=== PATIENT | female | born 1975 | race African-American/Black ===

== ENCOUNTER 2016-08-11 03:42 | Emergency (ER) | payer SELFPAY ==
[~2016-08-11] VITALS: Ht 165.1 cm; Wt 95.3 kg
[~2016-08-11 03:42] MED LIST: IBUP200T77 PO
[2016-08-11 03:46] VITALS: BP 149/88
[2016-08-11] MEDS ORDERED: BUPIVACAINE 0.25% 50 ML VIAL. IJ ONE (04:00)
--- NOTE | 2016-08-11 04:24 | PHYS DOC ---
Past Medical History Past Medical History: Other Additional Past Medical Histor: carpal tunnel Past Surgical History: No Surgical History Alcohol Use: None Drug Use: Marijuana Adult General Chief Complaint Chief Complaint: DENTAL PROBLEM HPI HPI Patient is a 41 year old female who presents with dental pain since dental extraction 2 days ago (states she had extraction of upper and lower molar on left side). Notes pain worse in left upper gumline than left lower gumline and radiates into cheek. Makes it difficult for her to sleep. Has been taking tylenol and ibuprofen without complete relief. Has appointment with dentist for f/u on 08/12/16. Denies face swelling, difficulty breathing, difficulty opening mouth, voice changes, fever or chills, nausea or vomiting. She is currently taking antibiotics for this as well due to associated infection. Review of Systems Review of Systems Constitutional: Denies fever or chills [] Eyes: Denies change in visual acuity, redness, or eye pain [] HENT: Denies nasal congestion or sore throat [] Respiratory: Denies cough or shortness of breath [] Cardiovascular: No additional information not addressed in HPI [] GI: Denies abdominal pain, nausea, vomiting, bloody stools or diarrhea [] : Denies dysuria or hematuria [] Musculoskeletal: Denies back pain or joint pain [] Integument: Denies rash or skin lesions [] Neurologic: Denies headache, focal weakness or sensory changes [] Endocrine: Denies polyuria or polydipsia [] Current Medications Current Medications Current Medications Medications (Trade) Dose Ordered Sig/[facility] Start Time Stop Time Status Last Admin Dose Admin Bupivacaine HCl (Marcaine 0.25%) 10 ml 1X ONCE 08/11/16 04:00 08/11/16 04:01 Cancel Bupivacaine HCl (Sensorcaine-Mpf 0.25%) 10 ml 1X ONCE 08/11/16 05:00 08/11/16 05:01 DC 08/11/16 04:38 10 ML Allergies Allergies Allergies Coded Allergies Type Severity Reaction Last Updated Verified No Known Drug Allergies 04/08/13 No Physical Exam Physical Exam Constitutional: Well developed, well nourished, no acute distress, non-toxic appearance. [] HENT: Normocephalic, atraumatic, bilateral external ears normal, oropharynx moist, no oral exudates, nose normal. Has well appearing pink gumline to left upper posterior premolar with some tenderness and mild white discharge from gumline but no swelling or discoloration; Has dental caries of left molar and premolar with an old healed gumline from past molar extraction, but no new evidence of extraction to lower teeth; No stridor, change of voice, tongue swelling, trismus, or drooling; Uvula is midline and floor is nontender [] Eyes: PERRLA, EOMI. [] Neck: Normal range of motion, no tenderness, supple. [] Cardiovascular: Extremities warm and well-perfused [] Lungs & Thorax: Respirations even and unlabored [] Abdomen: soft, no tenderness. [] Skin: Warm, dry, no erythema, no rash. [] Back: Normal range of motion. [] Extremities: ROM intact, ambulatory with a steady gait. [] Neurologic: Alert and oriented X 3, normal motor function, normal sensory function, no focal deficits noted. [] Psychologic: Affect normal, judgement normal, mood normal. [] Current Patient Data Vital Signs Vital Signs Date Time Temp Pulse Resp B/P Pulse Ox O2 Delivery O2 Flow Rate FiO2 08/11/16 03:46 98.5 80 18 99 Room Air 98.5 Course & Med Decision Making Course & Med Decision Making Dental block performed. She tolerated procedure well with no complications. Had improvement of symptoms. Return precautions given. She understands and agrees plan. Dragon Disclaimer Dragon Disclaimer This electronic medical record was generated, in whole or in part, using a voice recognition dictation system. PROCEDURE Procedure Left upper premolar dental block performed directly superior to the area of dental extraction with adequate analgesia, bupivacaine, 3 mL, tolerated procedure well, no complications Departure Departure Impression: Primary Impression: Pain, dental Disposition: 01 HOME, SELF-CARE Condition: STABLE Referrals: UNKNOWN PCP NAME (PCP) Patient Instructions: Dental Pain, [id number] Additional Instructions: Take Tylenol or ibuprofen as needed for pain. Follow-up with your dentist. Return for any concerns. Twan LECHUGA MD Aug 11, 2016 04:24
[2016-08-11] MEDS ORDERED: BUPIVACAINE MPF 0.25% 10 ML VIAL. IJ ONE (05:00)
== END 2016-08-11 05:00 | disposition home or self-care (01) ==
LOC: ER 03:42
DX: K08.89 Other specified disorders of teeth and supporting structures (principal); F12.10 Cannabis abuse, uncomplicated
CPT/HCPCS: 64400; 99284; J3490

== ENCOUNTER 2020-01-06 18:19 | Emergency (ER) | payer SELFPAY ==
[~2020-01-06] VITALS: Ht 165.1 cm; Wt 79.5 kg
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
[2020-01-06] MEDS ORDERED: HYDROcodone/APAP 5/325MG 1 TAB TABLET PO ONE (18:45)
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
[2020-01-06 19:34] LABS: CALCIUM 8.6 mg/dL (8.5-10.1); CREATININE 0.8 mg/dL (0.6-1.0); GFR 93.4; POTASSIUM 3.5 mmol/L (3.5-5.1)
[2020-01-06 19:39] LABS: ALBUMIN 3.2 g/dL (3.4-5.0); ALBUMIN/GLOBULIN RATIO 0.7 (1.0-1.7); TOTAL BILIRUBIN 0.3 mg/dL (0.2-1.0); TOTAL PROTEIN 7.8 g/dL (6.4-8.2)
[2020-01-06] MEDS ORDERED: IOHEXOL 350 MG/ML 100 ML VIAL. IV ONE (19:45)
[2020-01-06] MEDS ORDERED: CONTRAST GIVEN. MC PRN (20:00)
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
[2020-01-06 20:34] VITALS: BP 156/97
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
[2020-01-06] MEDS ORDERED: HYDR-3164 PO (20:53)
== END 2020-01-06 21:10 | disposition home or self-care (01) ==
LOC: ER 18:19
DX: S50.312A Abrasion of left elbow, initial encounter (principal); M25.552 Pain in left hip; M25.562 Pain in left knee; M79.652 Pain in left thigh; M16.12 Unilateral primary osteoarthritis, left hip; Y08.89XA Assault by other specified means, initial encounter; Y93.89 Activity, other specified; Y92.89 Other specified places as the place of occurrence of the external cause; Y99.8 Other external cause status
CPT/HCPCS: 36415; 73080; 73502; 73560; 74174; 80053; 99285; Q9967

== ENCOUNTER 2021-07-29 17:33 | Inpatient (IN) | payer SELFPAY ==
[~2021-07-29] VITALS: Ht 165.1 cm; Wt 87.1 kg
[~2021-07-29 17:33] MED LIST changes: +HYDR-3164 PO
[2021-07-29] MEDS ORDERED: IV NORMAL SALINE 1000ML BAG 1,000 ML IV ONE ×2 (18:15→23:00)
[2021-07-29 18:35] LABS: BASO # 0.1 x10^3/uL (0.0-0.2); BASO % 1 % (0-3); EOS # 0.1 x10^3/uL (0.0-0.7); EOS % 1 % (0-3); HEMATOCRIT 34.2 % (36.0-47.0); HEMOGLOBIN 10.9 g/dL (12.0-15.5); LYMPH # 1.8 x10^3/uL (1.0-4.8); LYMPH % 14 % (24-48); MEAN CORPUSCULAR HEMOGLOBIN 21 pg (25-35); MEAN CORPUSCULAR HGB CONC 32 g/dL (31-37); MEAN CORPUSCULAR VOLUME 67 fL (79-100); MONO % 8 % (0-9); NEUT # 10.2 x10^3/uL (1.8-7.7); NEUT % 77 % (31-73); PLATELET COUNT 414 x10^3/uL (140-400); RED BLOOD COUNT 5.14 x10^6/uL (3.50-5.40); RED CELL DISTRIBUTION WIDTH 18.6 % (11.5-14.5); WHITE BLOOD COUNT 13.2 x10^3/uL (4.0-11.0)
[2021-07-29] MEDS ORDERED: ONDANSETRON PF 4 MG/2 ML VIAL. IVP ONE (18:45)
[2021-07-29] MEDS ORDERED: IOHEXOL 300 MG/ML 100ML VIAL. IV ONE (18:45)
[2021-07-29] MEDS ORDERED: MORPHINE SULFATE 4 MG/ML INJ. IVP ONE (18:45)
[2021-07-29] MEDS ORDERED: FAMOTIDINE 20 MG/2 ML VIAL IVP ONE (18:45)
[2021-07-29] MEDS ORDERED: CONTRAST GIVEN. MC PRN (18:45)
[2021-07-29 18:52] LABS: BACTERIA,URINE FEW /HPF (0-FEW)
[2021-07-29 18:53] LABS: RBC,URINE OCC /HPF (0-2)
[2021-07-29 18:56] LABS: CALCIUM 8.8 mg/dL (8.5-10.1); GFR 71.6; POTASSIUM 3.2 mmol/L (3.5-5.1)
[2021-07-29 18:58] LABS: BARBITURATES NEG (NEG); BENZODIAZEPINES NEG (NEG); CANNABINOIDS NEG (NEG); COCAINE NEG (NEG); METHADONE NEG (NEG); OPIATES NEG (NEG); PHENCYCLIDINE NEG (NEG)
[2021-07-29 19:03] LABS: AMPHETAMINE/METHAMPHETAMINE NEG (NEG)
[2021-07-29 19:05] LABS: ALBUMIN 3.3 g/dL (3.4-5.0); ALBUMIN/GLOBULIN RATIO 0.6 (1.0-1.7); TOTAL BILIRUBIN 0.4 mg/dL (0.2-1.0); TOTAL PROTEIN 8.6 g/dL (6.4-8.2)
[2021-07-29 19:09] LABS: PLT ESTIMATE INCREASED (ADEQUATE)
[2021-07-29 19:10] LABS: ANISOCYTOSIS SLIGHT; HYPOCHROMIA MOD; MICROCYTOSIS MOD; POIKILOCYTOSIS SLIGHT
--- NOTE | 2021-07-29 19:47 | RAD ---
PQRS Compliance Statement: One or more of the following individualized dose reduction techniques were utilized for this examinat ion: 1. Automated exposure control 2. Adjustment of the mA and/or kV according to patient size 3. Use of iterative reconstruction technique CT ABDOMEN+PELVIS W Clinical Indication: Reason: Right sided abd pain / Comparison: CT abdomen and pelvis with contrast January 06, 2020. Technique: Helical CT imaging of the abdomen and pelvis is performed after 75 cc of Omnipaque 300 IV contrast. Oral contrast not administered. Findings: Mild atelectasis in the bilateral lung bases. Cardiac size normal. The dome of the liver is excluded. There is cholelithiasis. There is gallbladder wall thickening. Cannot exclude a faint filling defect in the distal common bile duct, image 27, coronal image 25. The common bile duct is mildly dilated me asuring up to 8 mm. No intrahepatic duct dilation. The liver is homogeneous. The spleen, pancreas, adrenal glands, abdominal aorta, and kidneys are norm al. The stomach is decompressed. There is no small bowel obstruction. The appendix is normal. There is no colon wall thickening. There is no abdominal adenopathy or free fluid. The urinary bladder is normal. There is mild pelvic free fluid. Uterus is anteverted. There is no acute bone abnormality. IMPRESSION: 1. There is cholelithiasis and gallbladder wall thickening. Cannot exclude acute cholecystitis. Efren mmend right upper quadrant ultrasound. 2. The common bile duct is slightly dilated. Cannot exclude a faint filling defect in the distal com mon bile duct. Suggest correlation with laboratory values. If abnormal, consider MRCP. 3. Mild pelvic free fluid may be physiologic. Electronically signed by: Vazquez Mercado MD (07/29/2021 7:44 PM) [facility]
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
[2021-07-29] MEDS ORDERED: fentaNYL PF VIAL 100 MCG/2 ML VIAL IVP ONE (22:30)
[2021-07-29] MEDS ORDERED: fentaNYL PF VIAL 100 MCG/2 ML VIAL IVP PRN (23:00)
[2021-07-29] MEDS ORDERED: ONDANSETRON PF 4 MG/2 ML VIAL. IVP PRN (23:00)
[2021-07-29] MEDS ORDERED: POTASSIUM CHLORIDE 20 MEQ TABLET.ER. PO ONE (23:00)
[2021-07-29] MEDS ORDERED: PIPERACILLIN/TAZOBACTAM 3.375 GM in IV NORMAL SALINE 50ML 50 ML IV ONE (23:15)
[2021-07-30] VITALS (7 sets, daily range): BP systolic 111–143; BP diastolic 58–84
--- NOTE | 2021-07-30 00:36 | PHYS DOC ---
Past Medical History Past Medical History: Anemia, Other Additional Past Medical Histor: carpal tunnel Past Surgical History: No Surgical History Smoking Status: Never Smoker Alcohol Use: None Drug Use: Marijuana General Adult EDM: Chief Complaint: CONSTIPATION HPI: HPI: Patient is a 46 year old female with history of anemia presenting to the ED today complaining of right-sided abdominal pain worse on the right upper quadrant, symptoms began on Monday. Patient states symptoms are worse after eating. Describes the pain as sharp and intermittent. Denies any nausea or vomiting, reports lack of appetite. Review of Systems: Review of Systems: Constitutional: Denies fever or chills. [] Eyes: Denies change in visual acuity. [] HENT: Denies nasal congestion or sore throat. [] Respiratory: Denies cough or shortness of breath. [] Cardiovascular: Denies chest pain or edema. [] GI: Reports right-sided abdominal pain, denies nausea, vomiting, bloody stools or diarrhea. [] : Denies dysuria. [] Musculoskeletal: Denies back pain or joint pain. [] Integument: Denies rash. [] Neurologic: Denies headache, focal weakness or sensory changes. [] Psychiatric: Denies depression or anxiety. [] Heart Score: C/O Chest Pain: N/A Risk Factors: Risk Factors: DM, Current or recent (<one month) smoker, HTN, HLP, family history of CAD, obesity. Risk Scores: Score 0 - 3: 2.5% MACE over next 6 weeks - Discharge Home Score 4 - 6: 20.3% MACE over next 6 weeks - Admit for Clinical Observation Score 7 - 10: 72.7% MACE over next 6 weeks - Early Invasive Strategies Current Medications: Current Medications Medications (Trade) Dose Ordered Sig/Aye Start Time Stop Time Status Last Admin Dose Admin Famotidine (Pepcid Vial) 20 mg 1X ONCE 07/29/21 18:45 07/29/21 18:46 DC 07/29/21 18:50 20 MG Fentanyl Citrate (Fentanyl 2ml Vial) 50 mcg PRN Q1HR PRN 07/29/21 23:00 07/30/21 22:59 Info (CONTRAST GIVEN -- Rx MONITORING) 1 each PRN DAILY PRN 07/29/21 18:45 07/31/21 18:44 Iohexol (Omnipaque 300 Mg/ml) 75 ml 1X ONCE 07/29/21 18:45 07/29/21 18:46 DC 07/29/21 19:08 75 ML Metronidazole 100 ml @ 100 mls/hr Q8HRS 07/29/21 23:15 07/29/21 23:07 100 MLS/HR Morphine Sulfate (Morphine Sulfate) 4 mg 1X ONCE 07/29/21 18:45 07/29/21 18:46 DC 07/29/21 18:51 4 MG Ondansetron HCl (Zofran) 4 mg PRN Q8HRS PRN 07/29/21 23:00 07/30/21 22:59 Piperacillin Sod/ Tazobactam Sod 3.375 gm/Sodium Chloride 50 ml @ 100 mls/hr 1X ONCE 07/29/21 23:15 07/29/21 23:44 DC 07/29/21 23:07 100 MLS/HR Potassium Chloride (Klor-Con) 40 meq 1X ONCE 07/29/21 23:00 07/29/21 23:01 DC 07/29/21 23:07 40 MEQ Sodium Chloride 1,000 ml @ 100 mls/hr 1X ONCE 07/29/21 23:00 07/30/21 08:59 07/29/21 23:03 100 MLS/HR Allergies: Allergies: Allergies Coded Allergies Type Severity Reaction Last Updated Verified No Known Drug Allergies 01/06/20 No Physical Exam: PE: Constitutional: Well developed, well nourished, no acute distress, non-toxic appearance. [] HENT: Normocephalic, atraumatic, bilateral external ears normal, oropharynx moist, no oral exudates, nose normal. [] Eyes: PERRLA, EOMI, conjunctiva normal, no discharge. [] Neck: Normal range of motion, no tenderness, supple, no stridor. [] Cardiovascular:Heart rate regular rhythm, no murmur [] Lungs & Thorax: Bilateral breath sounds clear to auscultation [] Abdomen: Bowel sounds normal, soft, tenderness on palpation of the right upper quadrant with positive Pearce sign, no tenderness to the right lower quadrant, no masses, no pulsatile masses. [] Skin: Warm, dry, no erythema, no rash. [] Back: No tenderness, no CVA tenderness. [] Extremities: No tenderness, no cyanosis, no clubbing, ROM intact, no edema. [] Neurologic: Alert and oriented X 3, normal motor function, normal sensory function, no focal deficits noted. [] Psychologic: Affect normal, judgement normal, mood normal. [] Current Patient Data: Labs: Laboratory Tests Test 07/29/21 17:59 07/29/21 18:25 Urine Collection Type Unknown Urine Color (Auto) Light yellow Urine Turbidity Clear Urine pH (Auto) 5.5 (<5.0-8.0) Urine Specific Thompson 1.009 (1.000-1.030) Urine Protein (Auto) Negative mg/dL (Negative) Urine Glucose (Auto)(UA) Negative mg/dL (Negative) Urine Ketones (Auto) Negative mg/dL (Negative) Urine Blood (Auto) Moderate (Negative) Urine Nitrite Negative (Negative) Urine Bilirubin (Auto) Negative (Negative) Urine Urobilinogen (Auto) Normal mg/dL (Normal) Urine Leukocyte Esterase (Auto) Negative (Negative) Urine RBC Occ /HPF (0-2) Urine WBC 1-4 /HPF (0-4) Urine Squamous Epithelial Cells Mod /LPF Urine Bacteria Few /HPF (0-FEW) Urine Opiates Screen Neg (NEG) Urine Methadone Screen Neg (NEG) Urine Barbiturates Neg (NEG) Urine Phencyclidine Screen Neg (NEG) Urine Amphetamine/Methamphetamine Neg (NEG) Urine Benzodiazepines Screen Neg (NEG) Urine Cocaine Screen Neg (NEG) Urine Cannabinoids Screen Neg (NEG) Urine Ethyl Alcohol Neg (NEG) White Blood Count 13.2 x10^3/uL (4.0-11.0) H Red Blood Count 5.14 x10^6/uL (3.50-5.40) Hemoglobin 10.9 g/dL (12.0-15.5) L Hematocrit 34.2 % (36.0-47.0) L Mean Corpuscular Volume 67 fL (79-100) L Mean Corpuscular Hemoglobin 21 pg (25-35) L Mean Corpuscular Hemoglobin Concent 32 g/dL (31-37) Red Cell Distribution Width 18.6 % (11.5-14.5) H Platelet Count 414 x10^3/uL (140-400) H Neutrophils (%) (Auto) 77 % (31-73) H Lymphocytes (%) (Auto) 14 % (24-48) L Monocytes (%) (Auto) 8 % (0-9) Eosinophils (%) (Auto) 1 % (0-3) Basophils (%) (Auto) 1 % (0-3) Neutrophils # (Auto) 10.2 x10^3/uL (1.8-7.7) H Lymphocytes # (Auto) 1.8 x10^3/uL (1.0-4.8) Monocytes # (Auto) 1.0 x10^3/uL (0.0-1.1) Eosinophils # (Auto) 0.1 x10^3/uL (0.0-0.7) Basophils # (Auto) 0.1 x10^3/uL (0.0-0.2) Platelet Estimate Increased (ADEQUATE) Hypochromasia Mod Poikilocytosis Slight Anisocytosis Slight Microcytosis Mod Sodium Level 135 mmol/L (136-145) L Potassium Level 3.2 mmol/L (3.5-5.1) L Chloride Level 98 mmol/L (98-107) Carbon Dioxide Level 30 mmol/L (21-32) Anion Gap 7 (6-14) Blood Urea Nitrogen 10 mg/dL (7-20) Creatinine 1.0 mg/dL (0.6-1.0) Estimated GFR (Cockcroft-Gault) 71.6 BUN/Creatinine Ratio 10 (6-20) Glucose Level 96 mg/dL (70-99) Calcium Level 8.8 mg/dL (8.5-10.1) Total Bilirubin 0.4 mg/dL (0.2-1.0) Aspartate Amino Transferase (AST) 16 U/L (15-37) Alanine Aminotransferase (ALT) 22 U/L (14-59) Alkaline Phosphatase 73 U/L (46-116) Total Protein 8.6 g/dL (6.4-8.2) H Albumin 3.3 g/dL (3.4-5.0) L Albumin/Globulin Ratio 0.6 (1.0-1.7) L Lipase 61 U/L (73-393) L Ethyl Alcohol Level < 10 mg/dL (0-10) Laboratory Tests 07/29/21 18:25 Laboratory Tests 07/29/21 18:25 Vital Signs: Vital Signs Date Time Temp Pulse Resp B/P (MAP) Pulse Ox O2 Delivery O2 Flow Rate FiO2 07/29/21 23:02 Room Air 07/29/21 18:51 16 98 07/29/21 17:50 99.1 91 148/80 (102) 99.1 EKG: EKG: [] Radiology/Procedures: Radiology/Procedures: []PROCEDURE: ABDOMEN LTD EXAM: ULTRASOUND ABDOMEN LIMITED CLINICAL HISTORY: Reason: RUQ pain / Spl. Instructions: / History: COMPARISON: None available. TECHNIQUE: Limited ultrasound examination of the right upper quadrant of the abdomen was performed. FINDINGS: Liver contour is normal. Hepatopedal flow noted in the portal vein. Numerous gallstones in the gallbladder. No pericholecystic fluid. There is mild gallbladder wall thickening. Common bile duct measures 6 mm in diameter. Right kidney measures 12.9 cm in long axis. No hydronephrosis. Visualized portions aorta and IVC are unremarkable. IMPRESSION: 1. Cholelithiasis with mild gallbladder wall thickening. Findings are concerning for acute cholecystitis. If necessary HIDA scan can definitively evaluate. 2. Normal sonographic appearance the liver. 3. No right-sided hydronephrosis. Electronically signed by: Serafin Dawson MD (07/29/2021 10:04 PM) [facility] DICTATED and SIGNED BY: SERAFIN DAWSON MD DATE: 07/29/212199 PROCEDURE: CT ABD PELV W/ IV CONTRST ONLY PQRS Compliance Statement: One or more of the following individualized dose reduction techniques were utilized for this examination: 1. Automated exposure control 2. Adjustment of the mA and/or kV according to patient size 3. Use of iterative reconstruction technique CT ABDOMEN+PELVIS W Clinical Indication: Reason: Right sided abd pain / Comparison: CT abdomen and pelvis with contrast January 06, 2020. Technique: Helical CT imaging of the abdomen and pelvis is performed after 75 cc of Omnipaque 300 IV contrast. Oral contrast not administered. Findings: Mild atelectasis in the bilateral lung bases. Cardiac size normal. The dome of the liver is excluded. There is cholelithiasis. There is gallbladder wall thickening. Cannot exclude a faint filling defect in the distal common bile duct, image 27, coronal image 25. The common bile duct is mildly dilated measuring up to 8 mm. No intrahepatic duct dilation. The liver is homogeneous. The spleen, pancreas, adrenal glands, abdominal aorta, and kidneys are normal. The stomach is decompressed. There is no small bowel obstruction. The appendix is normal. There is no colon wall thickening. There is no abdominal adenopathy or free fluid. The urinary bladder is normal. There is mild pelvic free fluid. Uterus is a nteverted. There is no acute bone abnormality. IMPRESSION: 1. There is cholelithiasis and gallbladder wall thickening. Cannot exclude acute cholecystitis. Recommend right upper quadrant ultrasound. 2. The common bile duct is slightly dilated. Cannot exclude a faint filling defect in the distal common bile duct. Suggest correlation with laboratory values. If abnormal, consider MRCP. 3. Mild pelvic free fluid may be physiologic. Electronically signed by: Vazquez Mercado MD (07/29/2021 7:44 PM) [facility] DICTATED and SIGNED BY: VAZQUEZ MERCADO MD DATE: 07/29/211931 Course & Med Decision Making: Course & Med Decision Making Pertinent Labs and Imaging studies reviewed. (See chart for details) This is a 46-year-old female patient presented to the ED today with right-sided abdominal pain since Monday. CBC with a WBC of 13.2, hemoglobin 10.9 with hematocrit of 34.2, history of anemia. CMP with potassium of 3.2, oral potassium replacement ordered. LFTs are normal. CT of the abdomen and pelvis noted cholelithiasis and gallbladder wall thickening. Cannot exclude acute cholecystitis. Recommend right upper quadrant ultrasound. The common bile duct is slightly dilated. Cannot exclude a faint filling defect in the distal common bile duct. Suggest correlation with laboratory values. If abnormal, consider MRCP. Mild pelvic free fluid may be physiologic. Right upper quadrant ultrasound noted for cholecystitis Spoke with Dr. Schilling who will follow up with patient tomorrow Patient started on antibiotics and IV fluids Admitted under Dr. Dirk Perales Disclaimer: Angella Disclaimer: This electronic medical record was generated, in whole or in part, using a voice recognition dictation system. Departure Departure Impression: Primary Impression: Cholecystitis Disposition: ADMITTED INPATIENT Condition: STABLE Referrals: NO PCP (PCP) NADIYA [employer] [address] Jul 30, 2021 00:36
[2021-07-30] MEDS ORDERED: PROCHLORPERAZINE 10 MG/2 ML VIAL. IVP PRN (07:15)
[2021-07-30] MEDS ORDERED: fentaNYL PF VIAL 100 MCG/2 ML VIAL IVP PRN ×2 (07:15)
[2021-07-30] MEDS ORDERED: HYDROmorphone 2 MG/ML INJ. IVP PRN (07:15)
[2021-07-30] MEDS ORDERED: MORPHINE SULFATE 2 MG/ML INJ. IVP PRN (07:15)
[2021-07-30] MEDS ORDERED: IV RINGERS,LACTATED 1000ML 1,000 ML IV SCH (07:15)
[2021-07-30 07:28] LABS: U PREG PATIENT NEGATIVE (NEG)
[2021-07-30 08:35] LABS: BASO # 0.1 x10^3/uL (0.0-0.2); BASO % 1 % (0-3); EOS # 0.2 x10^3/uL (0.0-0.7); EOS % 2 % (0-3); HEMATOCRIT 31.5 % (36.0-47.0); HEMOGLOBIN 10.1 g/dL (12.0-15.5); LYMPH # 1.3 x10^3/uL (1.0-4.8); LYMPH % 13 % (24-48); MEAN CORPUSCULAR HEMOGLOBIN 21 pg (25-35); MEAN CORPUSCULAR HGB CONC 32 g/dL (31-37); MEAN CORPUSCULAR VOLUME 67 fL (79-100); MONO # 0.7 x10^3/uL (0.0-1.1); MONO % 7 % (0-9); NEUT % 79 % (31-73); PLATELET COUNT 370 x10^3/uL (140-400); RED BLOOD COUNT 4.72 x10^6/uL (3.50-5.40); RED CELL DISTRIBUTION WIDTH 19.1 % (11.5-14.5); WHITE BLOOD COUNT 10.1 x10^3/uL (4.0-11.0)
[2021-07-30 08:51] LABS: ALBUMIN 2.7 g/dL (3.4-5.0); ALBUMIN/GLOBULIN RATIO 0.6 (1.0-1.7); CALCIUM 8.7 mg/dL (8.5-10.1); CREATININE 0.8 mg/dL (0.6-1.0); GFR 92.6; POTASSIUM 3.5 mmol/L (3.5-5.1); TOTAL BILIRUBIN 0.4 mg/dL (0.2-1.0); TOTAL PROTEIN 7.4 g/dL (6.4-8.2)
[2021-07-30] MEDS: MORPHINE SULFATE 2 MG/ML INJ. IVP PRN ×2 (09:12→15:11)
[2021-07-30] MEDS ORDERED: SURGICEL HEMOSTAT 4X8 EACH. ONE (09:43)
[2021-07-30] MEDS ORDERED: IOHEXOL 300 MG/ML 50 ML VIAL. ONE (09:43)
[2021-07-30] MEDS ORDERED: BUPIVACAINE-EPI 0.25%-1:200000 MPF 30 ML VIAL. ONE (09:44)
--- NOTE | 2021-07-30 09:59 | PDOC1 ---
History and Physical Date of Admission Date of Admission DATE: 07/30/21 TIME: 09:52 Identification/Chief Complaint Chief Complaint Abdominal pain Source Source: Patient History of Present Illness History of Present Illness Patient is a 46-year-old female with no stated past medical history presents to the ED with complaints of right upper quadrant abdominal pain for the past 4 days. She states management worsening over this time despite using Tylenol. CT abdomen/pelvis and ultrasound in the ED showed findings concerning for acute cholecystitis. Patient will be admitted with general surgery consult. Past Medical History Past Medical History Anxiety/depression Past Surgical History Past Surgical History: Family History Family History: Cancer Social History Smoke: No ALCOHOL: none Drugs: None Current Medications Current Medications Current Medications Morphine Sulfate (Morphine Sulfate) 4 mg 1X ONCE IVP Last administered on 07/29/21at 18:51; Start 07/29/21 at 18:45; Stop 07/29/21 at 18:46; Status DC Ondansetron HCl (Zofran) 4 mg 1X ONCE IVP Last administered on 07/29/21at 18:51; Start 07/29/21 at 18:45; Stop 07/29/21 at 18:46; Status DC Sodium Chloride 1,000 ml @ 1,000 mls/hr 1X ONCE IV Last administered on 07/29/21at 18:50; Start 07/29/21 at 18:15; Stop 07/29/21 at 19:14; Status DC Famotidine (Pepcid Vial) 20 mg 1X ONCE IVP Last administered on 07/29/21at 18:50; Start 07/29/21 at 18:45; Stop 07/29/21 at 18:46; Status DC Iohexol (Omnipaque 300 Mg/ml) 75 ml 1X ONCE IV Last administered on 07/29/21at 19:08; Start 07/29/21 at 18:45; Stop 07/29/21 at 18:46; Status DC Info (CONTRAST GIVEN -- Rx MONITORING) 1 each PRN DAILY PRN MC SEE COMMENTS; Start 07/29/21 at 18:45; Stop 07/31/21 at 18:44 Fentanyl Citrate (Fentanyl 2ml Vial) 50 mcg 1X ONCE IVP Last administered on 07/29/21at 23:02; Start 07/29/21 at 22:30; Stop 07/29/21 at 22:31; Status DC Ondansetron HCl (Zofran) 4 mg PRN Q8HRS PRN IVP NAUSEA/VOMITING; Start 07/29/21 at 23:00; Stop 07/30/21 at 22:59 Fentanyl Citrate (Fentanyl 2ml Vial) 50 mcg PRN Q1HR PRN IVP PAIN Last administered on 07/30/21at 05:45; Start 07/29/21 at 23:00; Stop 07/30/21 at 08:41; Status DC Sodium Chloride 1,000 ml @ 100 mls/hr 1X ONCE IV Last administered on 07/29/21at 23:03; Start 07/29/21 at 23:00; Stop 07/30/21 at 08:59; Status DC Piperacillin Sod/ Tazobactam Sod 3.375 gm/Sodium Chloride 50 ml @ 100 mls/hr 1X ONCE IV Last administered on 07/29/21at 23:07; Start 07/29/21 at 23:15; Stop 07/29/21 at 23:44; Status DC Metronidazole 100 ml @ 100 mls/hr Q8HRS IV Last administered on 07/29/21at 23:07; Start 07/29/21 at 23:15; Stop 07/30/21 at 04:59; Status DC Potassium Chloride (Klor-Con) 40 meq 1X ONCE PO Last administered on 07/29/21at 23:07; Start 07/29/21 at 23:00; Stop 07/29/21 at 23:01; Status DC Metronidazole 100 ml @ 100 mls/hr Q8HRS IV Last administered on 07/30/21at 05:40; Start 07/30/21 at 06:00 Fentanyl Citrate (Fentanyl 2ml Vial) 25 mcg PRN Q5MIN PRN IVP MILD PAIN 1-3; Start 07/30/21 at 07:15; Stop 07/31/21 at 07:14 Fentanyl Citrate (Fentanyl 2ml Vial) 50 mcg PRN Q5MIN PRN IVP MODERATE PAIN 4- 6; Start 07/30/21 at 07:15; Stop 07/31/21 at 07:14 Morphine Sulfate (Morphine Sulfate) 1 mg PRN Q10MIN PRN IVP SEVERE PAIN 7-10; Start 07/30/21 at 07:15; Stop 07/31/21 at 07:14 Ringer's Solution 1,000 ml @ 30 mls/hr Q24H IV ; Start 07/30/21 at 07:15; Stop 07/30/21 at 19:14 Hydromorphone HCl (Dilaudid) 0.5 mg PRN Q10MIN PRN IVP SEVERE PAIN 7-10, 2nd CHOICE; Start 07/30/21 at 07:15; Stop 07/31/21 at 07:14 Prochlorperazine Edisylate (Compazine) 5 mg PACU PRN PRN IVP NAUSEA, MRX1; Start 07/30/21 at 07:15; Stop 07/31/21 at 07:14 Morphine Sulfate (Morphine Sulfate) 2 mg PRN Q2HR PRN IVP PAIN Last administered on 07/30/21at 09:12; Start 07/30/21 at 08:45 Iohexol (Omnipaque 300 Mg/ml) 50 ml STK-MED ONCE .ROUTE ; Start 07/30/21 at 09:43; Stop 07/30/21 at 09:44; Status DC Cellulose (Surgicel Hemostat 4x8) 1 each STK-MED ONCE .ROUTE ; Start 07/30/21 at 09:43; Stop 07/30/21 at 09:44; Status DC Bupivacaine HCl/ Epinephrine Bitart (Sensorcaine-Epi 0.25%-1:902959 Mpf) 30 ml STK-MED ONCE .ROUTE ; Start 07/30/21 at 09:44; Stop 07/30/21 at 09:44; Status DC Active Scripts Active Meridian 5-325 Tablet (Acetaminophen/Hydrocodone Bitart) 1 Each Tablet 1-2 Each PO PRN Q6HRS PRN as needed for pain Reported Ibuprofen 200 Mg Tablet 200 Mg PO Allergies Allergies: Coded Allergies: No Known Drug Allergies (Unverified , 01/06/20) ROS Review of System GENERAL: No history of weight change, weakness or fevers. SKIN: No bruising, hair changes or rashes. EYES: No blurred, double or loss of vision. NOSE AND THROAT: No history of nosebleeds, hoarseness or sore throat. HEART: Denies chest pain, denies palpitations. LUNGS: Denies cough, hemoptysis, wheezing or shortness of breath. GASTROINTESTINAL: Abdominal pain, nausea. GENITOURINARY: Denies dysuria, frequency, urgency, hematuria. NEUROLOGIC: Denies history of numbness, tingling, tremor or weakness. PSYCHIATRIC: Denies anxiety, denies depression. ENDOCRINE: No history of heat or cold intolerance, polyuria or polydipsia. EXTREMITIES: Denies muscle weakness, joint pain, pain on walking or stiffness. Physical Exam Physical Exam General: Alert, Oriented X3, Cooperative, mild distress HEENT: PERRLA, EOMI Lungs: Clear to auscultation, Normal air movement Heart: RRR, no murmurs Cardiovascular: S1, S2 Abdomen: Right upper quadrant abdominal tenderness. Normal bowel sounds. Extremities: No clubbing, No cyanosis Skin: No rashes, No significant lesion Neuro: Normal speech, Normal tone, Sensation intact Psych/Mental Status: Mental status NL, Mood NL Vitals Vitals Vital Signs Date Time Temp Pulse Resp B/P (MAP) Pulse Ox O2 Delivery O2 Flow Rate FiO2 07/30/21 09:12 18 Room Air 07/30/21 07:00 98.1 79 122/75 (91) 98 98.1 Labs Labs Laboratory Tests Test 07/29/21 17:59 07/29/21 18:25 07/30/21 00:12 07/30/21 06:55 Urine Collection Type Unknown Urine Color (Auto) Light yellow Urine Turbidity Clear Urine pH (Auto) 5.5 (<5.0-8.0) Urine Specific [place] 1.009 (1.000-1.030) Urine Protein (Auto) Negative mg/dL (Negative) Urine Glucose (Auto)(UA) Negative mg/dL (Negative) Urine Ketones (Auto) Negative mg/dL (Negative) Urine Blood (Auto) Moderate (Negative) Urine Nitrite Negative (Negative) Urine Bilirubin (Auto) Negative (Negative) Urine Urobilinogen (Auto) Normal mg/dL (Normal) Urine Leukocyte Esterase (Auto) Negative (Negative) Urine RBC Occ /HPF (0-2) Urine WBC 1-4 /HPF (0-4) Urine Squamous Epithelial Cells Mod /LPF Urine Bacteria Few /HPF (0-FEW) Urine Test Negative (NEG) Urine Opiates Screen Neg (NEG) Urine Methadone Screen Neg (NEG) Urine Barbiturates Neg (NEG) Urine Phencyclidine Screen Neg (NEG) Urine Amphetamine/Methamphetamine Neg (NEG) Urine Benzodiazepines Screen Neg (NEG) Urine Cocaine Screen Neg (NEG) Urine Cannabinoids Screen Neg (NEG) Urine Ethyl Alcohol Neg (NEG) White Blood Count 13.2 x10^3/uL (4.0-11.0) 10.1 x10^3/uL (4.0-11.0) Red Blood Count 5.14 x10^6/uL (3.50-5.40) 4.72 x10^6/uL (3.50-5.40) Hemoglobin 10.9 g/dL (12.0-15.5) 10.1 g/dL (12.0-15.5) Hematocrit 34.2 % (36.0-47.0) 31.5 % (36.0-47.0) Mean Corpuscular Volume 67 fL (79-100) 67 fL (79-100) Mean Corpuscular Hemoglobin 21 pg (25-35) 21 pg (25-35) Mean Corpuscular Hemoglobin Concent 32 g/dL (31-37) 32 g/dL (31-37) Red Cell Distribution Width 18.6 % (11.5-14.5) 19.1 % (11.5-14.5) Platelet Count 414 x10^3/uL (140-400) 370 x10^3/uL (140-400) Neutrophils (%) (Auto) 77 % (31-73) 79 % (31-73) Lymphocytes (%) (Auto) 14 % (24-48) 13 % (24-48) Monocytes (%) (Auto) 8 % (0-9) 7 % (0-9) Eosinophils (%) (Auto) 1 % (0-3) 2 % (0-3) Basophils (%) (Auto) 1 % (0-3) 1 % (0-3) Neutrophils # (Auto) 10.2 x10^3/uL (1.8-7.7) 8.0 x10^3/uL (1.8-7.7) Lymphocytes # (Auto) 1.8 x10^3/uL (1.0-4.8) 1.3 x10^3/uL (1.0-4.8) Monocytes # (Auto) 1.0 x10^3/uL (0.0-1.1) 0.7 x10^3/uL (0.0-1.1) Eosinophils # (Auto) 0.1 x10^3/uL (0.0-0.7) 0.2 x10^3/uL (0.0-0.7) Basophils # (Auto) 0.1 x10^3/uL (0.0-0.2) 0.1 x10^3/uL (0.0-0.2) Platelet Estimate Increased (ADEQUATE) Hypochromasia Mod Poikilocytosis Slight Anisocytosis Slight Microcytosis Mod Sodium Level 135 mmol/L (136-145) 140 mmol/L (136-145) Potassium Level 3.2 mmol/L (3.5-5.1) 3.5 mmol/L (3.5-5.1) Chloride Level 98 mmol/L (98-107) 103 mmol/L (98-107) Carbon Dioxide Level 30 mmol/L (21-32) 28 mmol/L (21-32) Anion Gap 7 (6-14) 9 (6-14) Blood Urea Nitrogen 10 mg/dL (7-20) 8 mg/dL (7-20) Creatinine 1.0 mg/dL (0.6-1.0) 0.8 mg/dL (0.6-1.0) Estimated GFR (Cockcroft-Gault) 71.6 92.6 BUN/Creatinine Ratio 10 (6-20) 10 (6-20) Glucose Level 96 mg/dL (70-99) 89 mg/dL (70-99) Calcium Level 8.8 mg/dL (8.5-10.1) 8.7 mg/dL (8.5-10.1) Total Bilirubin 0.4 mg/dL (0.2-1.0) 0.4 mg/dL (0.2-1.0) Aspartate Amino Transf (AST/SGOT) 16 U/L (15-37) 11 U/L (15-37) Alanine Aminotransferase (ALT/SGPT) 22 U/L (14-59) 19 U/L (14-59) Alkaline Phosphatase 73 U/L (46-116) 60 U/L (46-116) Total Protein 8.6 g/dL (6.4-8.2) 7.4 g/dL (6.4-8.2) Albumin 3.3 g/dL (3.4-5.0) 2.7 g/dL (3.4-5.0) Albumin/Globulin Ratio 0.6 (1.0-1.7) 0.6 (1.0-1.7) Lipase 61 U/L (73-393) Ethyl Alcohol Level < 10 mg/dL (0-10) SARS-CoV-2 Antigen (Rapid) Negative (NEGATIVE) Laboratory Tests Test 07/29/21 17:59 07/29/21 18:25 07/30/21 00:12 07/30/21 06:55 Urine Collection Type Unknown Urine Color (Auto) Light yellow Urine Turbidity Clear Urine pH (Auto) 5.5 (<5.0-8.0) Urine Specific [place] 1.009 (1.000-1.030) Urine Protein (Auto) Negative mg/dL (Negative) Urine Glucose (Auto)(UA) Negative mg/dL (Negative) Urine Ketones (Auto) Negative mg/dL (Negative) Urine Blood (Auto) Moderate (Negative) Urine Nitrite Negative (Negative) Urine Bilirubin (Auto) Negative (Negative) Urine Urobilinogen (Auto) Normal mg/dL (Normal) Urine Leukocyte Esterase (Auto) Negative (Negative) Urine RBC Occ /HPF (0-2) Urine WBC 1-4 /HPF (0-4) Urine Squamous Epithelial Cells Mod /LPF Urine Bacteria Few /HPF (0-FEW) Urine Test Negative (NEG) Urine Opiates Screen Neg (NEG) Urine Methadone Screen Neg (NEG) Urine Barbiturates Neg (NEG) Urine Phencyclidine Screen Neg (NEG) Urine Amphetamine/Methamphetamine Neg (NEG) Urine Benzodiazepines Screen Neg (NEG) Urine Cocaine Screen Neg (NEG) Urine Cannabinoids Screen Neg (NEG) Urine Ethyl Alcohol Neg (NEG) White Blood Count 13.2 x10^3/uL (4.0-11.0) 10.1 x10^3/uL (4.0-11.0) Red Blood Count 5.14 x10^6/uL (3.50-5.40) 4.72 x10^6/uL (3.50-5.40) Hemoglobin 10.9 g/dL (12.0-15.5) 10.1 g/dL (12.0-15.5) Hematocrit 34.2 % (36.0-47.0) 31.5 % (36.0-47.0) Mean Corpuscular Volume 67 fL (79-100) 67 fL (79-100) Mean Corpuscular Hemoglobin 21 pg (25-35) 21 pg (25-35) Mean Corpuscular Hemoglobin Concent 32 g/dL (31-37) 32 g/dL (31-37) Red Cell Distribution Width 18.6 % (11.5-14.5) 19.1 % (11.5-14.5) Platelet Count 414 x10^3/uL (140-400) 370 x10^3/uL (140-400) Neutrophils (%) (Auto) 77 % (31-73) 79 % (31-73) Lymphocytes (%) (Auto) 14 % (24-48) 13 % (24-48) Monocytes (%) (Auto) 8 % (0-9) 7 % (0-9) Eosinophils (%) (Auto) 1 % (0-3) 2 % (0-3) Basophils (%) (Auto) 1 % (0-3) 1 % (0-3) Neutrophils # (Auto) 10.2 x10^3/uL (1.8-7.7) 8.0 x10^3/uL (1.8-7.7) Lymphocytes # (Auto) 1.8 x10^3/uL (1.0-4.8) 1.3 x10^3/uL (1.0-4.8) Monocytes # (Auto) 1.0 x10^3/uL (0.0-1.1) 0.7 x10^3/uL (0.0-1.1) Eosinophils # (Auto) 0.1 x10^3/uL (0.0-0.7) 0.2 x10^3/uL (0.0-0.7) Basophils # (Auto) 0.1 x10^3/uL (0.0-0.2) 0.1 x10^3/uL (0.0-0.2) Platelet Estimate Increased (ADEQUATE) Hypochromasia Mod Poikilocytosis Slight Anisocytosis Slight Microcytosis Mod Sodium Level 135 mmol/L (136-145) 140 mmol/L (136-145) Potassium Level 3.2 mmol/L (3.5-5.1) 3.5 mmol/L (3.5-5.1) Chloride Level 98 mmol/L (98-107) 103 mmol/L (98-107) Carbon Dioxide Level 30 mmol/L (21-32) 28 mmol/L (21-32) Anion Gap 7 (6-14) 9 (6-14) Blood Urea Nitrogen 10 mg/dL (7-20) 8 mg/dL (7-20) Creatinine 1.0 mg/dL (0.6-1.0) 0.8 mg/dL (0.6-1.0) Estimated GFR (Cockcroft-Gault) 71.6 92.6 BUN/Creatinine Ratio 10 (6-20) 10 (6-20) Glucose Level 96 mg/dL (70-99) 89 mg/dL (70-99) Calcium Level 8.8 mg/dL (8.5-10.1) 8.7 mg/dL (8.5-10.1) Total Bilirubin 0.4 mg/dL (0.2-1.0) 0.4 mg/dL (0.2-1.0) Aspartate Amino Transf (AST/SGOT) 16 U/L (15-37) 11 U/L (15-37) Alanine Aminotransferase (ALT/SGPT) 22 U/L (14-59) 19 U/L (14-59) Alkaline Phosphatase 73 U/L (46-116) 60 U/L (46-116) Total Protein 8.6 g/dL (6.4-8.2) 7.4 g/dL (6.4-8.2) Albumin 3.3 g/dL (3.4-5.0) 2.7 g/dL (3.4-5.0) Albumin/Globulin Ratio 0.6 (1.0-1.7) 0.6 (1.0-1.7) Lipase 61 U/L (73-393) Ethyl Alcohol Level < 10 mg/dL (0-10) SARS-CoV-2 Antigen (Rapid) Negative (NEGATIVE) Images Images PATIENT: OSEI MARES ACCOUNT: [id number] : 1975 LOCATION: ER AGE: 46 SEX: F EXAM STATUS: REG ER ORD. PHYSICIAN: NADIYA CRAIN APRN REASON: Right sided abd pain PROCEDURE: CT ABD PELV W/ IV CONTRST ONLY PQRS Compliance Statement: One or more of the following individualized dose reduction techniques were utilized for this examination: 1. Automated exposure control 2. Adjustment of the mA and/or kV according to patient size 3. Use of iterative reconstruction technique CT ABDOMEN+PELVIS W Clinical Indication: Reason: Right sided abd pain / Comparison: CT abdomen and pelvis with contrast January 06, 2020. Technique: Helical CT imaging of the abdomen and pelvis is performed after 75 cc of Omnipaque 300 IV contrast. Oral contrast not administered. Findings: Mild atelectasis in the bilateral lung bases. Cardiac size normal. The dome of the liver is excluded. There is cholelithiasis. There is gallbladder wall thickening. Cannot exclude a faint filling defect in the distal common bile duct, image 27, coronal image 25. The common bile duct is mildly dilated measuring up to 8 mm. No intrahepatic duct dilation. The liver is homogeneous. The spleen, pancreas, adrenal glands, abdominal aorta, and kidneys are normal. The stomach is decompressed. There is no small bowel obstruction. The appendix is normal. There is no colon wall thickening. There is no abdominal adenopathy or free fluid. The urinary bladder is normal. There is mild pelvic free fluid. Uterus is anteverted. There is no acute bone abnormality. IMPRESSION: 1. There is cholelithiasis and gallbladder wall thickening. Cannot exclude acute cholecystitis. Recommend right upper quadrant ultrasound. 2. The common bile duct is slightly dilated. Cannot exclude a faint filling defect in the distal common bile duct. Suggest correlation with laboratory values. If abnormal, consider MRCP. 3. Mild pelvic free fluid may be physiologic. PATIENT: OSEI MARES ACCOUNT: [id number] : 1975 LOCATION: ER AGE: 46 SEX: F EXAM STATUS: REG ER ORD. PHYSICIAN: NADIYA CRAIN APRN REASON: RUQ pain PROCEDURE: ABDOMEN LTD EXAM: ULTRASOUND ABDOMEN LIMITED CLINICAL HISTORY: Reason: RUQ pain / Spl. Instructions: / History: COMPARISON: None available. TECHNIQUE: Limited ultrasound examination of the right upper quadrant of the abdomen was performed. FINDINGS: Liver contour is normal. Hepatopedal flow noted in the portal vein. Numerous gallstones in the gallbladder. No pericholecystic fluid. There is mild gallbladder wall thickening. Common bile duct measures 6 mm in diameter. Right kidney measures 12.9 cm in long axis. No hydronephrosis. Visualized portions aorta and IVC are unremarkable. IMPRESSION: 1. Cholelithiasis with mild gallbladder wall thickening. Findings are concerning for acute cholecystitis. If necessary HIDA scan can definitively evaluate. 2. Normal sonographic appearance the liver. 3. No right-sided hydronephrosis. VTE Prophylaxis Ordered VTE Prophylaxis Devices: No VTE Pharmacological Prophylaxi: Yes Assessment/Plan Assessment/Plan Acute cholecystitis Iron deficiency anemia Plan: Consult placed to general surgery Patient is scheduled for surgery today She will likely discharge home tomorrow with a short course of pain medication FEN - NPO PPX - Heparin FULL CODE Dispo - inpatient for above Justifications for Admission Other Justification JELANI NOWAK MD Jul 30, 2021 09:59
[2021-07-30] MEDS ORDERED: PROPOFOL 10 MG/ML (20ML) VIAL. IV ONE (10:47)
[2021-07-30] MEDS ORDERED: ROCURONIUM 50 MG/5 ML VIAL. ONE (10:47)
[2021-07-30] MEDS ORDERED: KETOROLAC 30 MG/ML VIAL. ONE (10:47)
[2021-07-30] MEDS ORDERED: fentaNYL PF VIAL 100 MCG/2 ML VIAL ONE (10:47)
[2021-07-30] MEDS ORDERED: DEXAMETHASONE SOD PHOS 4 MG/ML VIAL ONE (10:47)
[2021-07-30] MEDS ORDERED: SEVOFLURANE 31 TO 60 MINUTES. IH ONE (10:47)
[2021-07-30] MEDS ORDERED: ONDANSETRON PF 4 MG/2 ML VIAL. ONE (10:47)
[2021-07-30] MEDS ORDERED: LIDOCAINE 2% PF 5 ML VIAL. ONE (10:47)
[2021-07-30] MEDS ORDERED: NEOSTIGMINE METHYLSULFATE 5 MG/5 ML SYRINGE. ONE (10:48)
[2021-07-30] MEDS ORDERED: MIDAZOLAM HCL/PF 2 MG/2 ML VIAL. ONE (10:48)
[2021-07-30] MEDS ORDERED: GLYCOPYRROLATE 1 MG/5 ML VIAL. ONE ×2 (10:48→12:34)
--- NOTE | 2021-07-30 11:05 | PDOC2 ---
NALLELY SHARIF RN DOCUMENT IMPROVEMENT SPECIALIST 07/30/21 1105: CONSULT Date of Consult Date of Consult DATE: 07/30/21 TIME: 11:03 Reason for Consult Reason for Consult: cholecystitis Referring Physician Referring Physician: ER Identification/Chief Complaint Chief Complaint abdominal pain Source Source: Chart review, Patient History of Present Illness Reason for Visit: Admitted with acute onset RUQ pain since Monday. Pain is radiating to back, associated nausea. No constipation or diarrhea. no similar symptoms in the past Past Medical History Past Medical History denies any pertinent hx Past Surgical History Past Surgical History: Family History Family History: Cancer, Other (noncontributory to current illness ) Social History No ALCOHOL: none Drugs: None Current Medications Current Medications Current Medications Morphine Sulfate (Morphine Sulfate) 4 mg 1X ONCE IVP Last administered on 07/29/21at 18:51; Start 07/29/21 at 18:45; Stop 07/29/21 at 18:46; Status DC Ondansetron HCl (Zofran) 4 mg 1X ONCE IVP Last administered on 07/29/21at 18:51; Start 07/29/21 at 18:45; Stop 07/29/21 at 18:46; Status DC Sodium Chloride 1,000 ml @ 1,000 mls/hr 1X ONCE IV Last administered on 07/29/21at 18:50; Start 07/29/21 at 18:15; Stop 07/29/21 at 19:14; Status DC Famotidine (Pepcid Vial) 20 mg 1X ONCE IVP Last administered on 07/29/21at 18:50; Start 07/29/21 at 18:45; Stop 07/29/21 at 18:46; Status DC Iohexol (Omnipaque 300 Mg/ml) 75 ml 1X ONCE IV Last administered on 07/29/21at 19:08; Start 07/29/21 at 18:45; Stop 07/29/21 at 18:46; Status DC Info (CONTRAST GIVEN -- Rx MONITORING) 1 each PRN DAILY PRN MC SEE COMMENTS; Start 07/29/21 at 18:45; Stop 07/31/21 at 18:44 Fentanyl Citrate (Fentanyl 2ml Vial) 50 mcg 1X ONCE IVP Last administered on 07/29/21at 23:02; Start 07/29/21 at 22:30; Stop 07/29/21 at 22:31; Status DC Ondansetron HCl (Zofran) 4 mg PRN Q8HRS PRN IVP NAUSEA/VOMITING; Start 07/29/21 at 23:00; Stop 07/30/21 at 22:59 Fentanyl Citrate (Fentanyl 2ml Vial) 50 mcg PRN Q1HR PRN IVP PAIN Last administered on 07/30/21at 05:45; Start 07/29/21 at 23:00; Stop 07/30/21 at 08:41; Status DC Sodium Chloride 1,000 ml @ 100 mls/hr 1X ONCE IV Last administered on 07/29/21at 23:03; Start 07/29/21 at 23:00; Stop 07/30/21 at 08:59; Status DC Piperacillin Sod/ Tazobactam Sod 3.375 gm/Sodium Chloride 50 ml @ 100 mls/hr 1X ONCE IV Last administered on 07/29/21at 23:07; Start 07/29/21 at 23:15; Stop 07/29/21 at 23:44; Status DC Metronidazole 100 ml @ 100 mls/hr Q8HRS IV Last administered on 07/29/21at 23:07; Start 07/29/21 at 23:15; Stop 07/30/21 at 04:59; Status DC Potassium Chloride (Klor-Con) 40 meq 1X ONCE PO Last administered on 07/29/21at 23:07; Start 07/29/21 at 23:00; Stop 07/29/21 at 23:01; Status DC Metronidazole 100 ml @ 100 mls/hr Q8HRS IV Last administered on 07/30/21at 05:40; Start 07/30/21 at 06:00 Fentanyl Citrate (Fentanyl 2ml Vial) 25 mcg PRN Q5MIN PRN IVP MILD PAIN 1-3; Start 07/30/21 at 07:15; Stop 07/31/21 at 07:14 Fentanyl Citrate (Fentanyl 2ml Vial) 50 mcg PRN Q5MIN PRN IVP MODERATE PAIN 4- 6; Start 07/30/21 at 07:15; Stop 07/31/21 at 07:14 Morphine Sulfate (Morphine Sulfate) 1 mg PRN Q10MIN PRN IVP SEVERE PAIN 7-10; Start 07/30/21 at 07:15; Stop 07/31/21 at 07:14 Ringer's Solution 1,000 ml @ 30 mls/hr Q24H IV ; Start 07/30/21 at 07:15; Stop 07/30/21 at 19:14 Hydromorphone HCl (Dilaudid) 0.5 mg PRN Q10MIN PRN IVP SEVERE PAIN 7-10, 2nd CHOICE; Start 07/30/21 at 07:15; Stop 07/31/21 at 07:14 Prochlorperazine Edisylate (Compazine) 5 mg PACU PRN PRN IVP NAUSEA, MRX1; Start 07/30/21 at 07:15; Stop 07/31/21 at 07:14 Morphine Sulfate (Morphine Sulfate) 2 mg PRN Q2HR PRN IVP PAIN Last administered on 07/30/21at 09:12; Start 07/30/21 at 08:45 Iohexol (Omnipaque 300 Mg/ml) 50 ml STK-MED ONCE .ROUTE ; Start 07/30/21 at 09:43; Stop 07/30/21 at 09:44; Status DC Cellulose (Surgicel Hemostat 4x8) 1 each STK-MED ONCE .ROUTE ; Start 07/30/21 at 09:43; Stop 07/30/21 at 09:44; Status DC Bupivacaine HCl/ Epinephrine Bitart (Sensorcaine-Epi 0.25%-1:427844 Mpf) 30 ml STK-MED ONCE .ROUTE ; Start 07/30/21 at 09:44; Stop 07/30/21 at 09:44; Status DC Heparin Sodium (Porcine) (Heparin Sodium) 5,000 unit Q8HRS SQ ; Start 07/30/21 at 14:00 Propofol (Diprivan) 200 mg STK-MED ONCE IV ; Start 07/30/21 at 10:47; Stop 07/30/21 at 10:47; Status DC Ketorolac Tromethamine (Toradol 30mg Vial) 30 mg STK-MED ONCE .ROUTE ; Start 07/30/21 at 10:47; Stop 07/30/21 at 10:47; Status DC Lidocaine HCl (Lidocaine Pf 2% Vial) 5 ml STK-MED ONCE .ROUTE ; Start 07/30/21 at 10:47; Stop 07/30/21 at 10:47; Status DC Ondansetron HCl (Zofran) 4 mg STK-MED ONCE .ROUTE ; Start 07/30/21 at 10:47; Stop 07/30/21 at 10:47; Status DC Dexamethasone Sodium Phosphate (Decadron) 4 mg STK-MED ONCE .ROUTE ; Start 07/30/21 at 10:47; Stop 07/30/21 at 10:47; Status DC Sevoflurane (Ultane) 30 ml STK-MED ONCE IH ; Start 07/30/21 at 10:47; Stop 07/30/21 at 10:47; Status DC Rocuronium [place] (Zemuron) 50 mg STK-MED ONCE .ROUTE ; Start 07/30/21 at 10:47; Stop 07/30/21 at 10:47; Status DC Fentanyl Citrate (Fentanyl 2ml Vial) 100 mcg STK-MED ONCE .ROUTE ; Start 07/30/21 at 10:47; Stop 07/30/21 at 10:47; Status DC Neostigmine [place] (Neostigmine Methylsulfate) 5 mg STK-MED ONCE .ROUTE ; Start 07/30/21 at 10:48; Stop 07/30/21 at 10:48; Status DC Midazolam HCl (Versed) 2 mg STK-MED ONCE .ROUTE ; Start 07/30/21 at 10:48; Stop 07/30/21 at 10:48; Status DC Glycopyrrolate (Robinul) 1 mg STK-MED ONCE .ROUTE ; Start 07/30/21 at 10:48; Stop 07/30/21 at 10:49; Status DC Active Scripts Active [place] 5-325 Tablet (Acetaminophen/Hydrocodone Bitart) 1 Each Tablet 1-2 Each PO PRN Q6HRS PRN as needed for pain Reported Ibuprofen 200 Mg Tablet 200 Mg PO Allergies Allergies: Coded Allergies: No Known Drug Allergies (Unverified , 01/06/20) ROS General: YES: Chills; No: Appetite (loss) PSYCHOLOGICAL ROS: No: Anxiety, Depression Eyes: No Blurry vision, No Double vision HEENT: No: Heacaches, Sore Throat Hematological and Lymphatic: No: Bleeding Problems, Blood Clots Respiratory: No: Cough, Shortness of breath Gastrointestinal: Yes Other (see HPI) Genitourinary: No Dysuria, No Retention Musculoskeletal: No Joint Pain, No Muscle Pain Neurological: No Impaired Coord/balance, No Numbness/Tingling Skin: No Pruritus, No Rash Physical Exam General: Alert, Oriented X3, Cooperative HEENT: Atraumatic, PERRLA Lungs: Clear to auscultation, Normal air movement Heart: Regular rate, Normal S1, Normal S2 Abdomen: Soft, Other (RUQ TTP) Extremities: No clubbing, No cyanosis Skin: No rashes, No breakdown Neuro: Normal gait, Normal speech Psych/Mental Status: Mental status NL, Mood NL MUSCULOSKELETAL: No deformity, No swelling Vitals VITALS Vital Signs Date Time Temp Pulse Resp B/P (MAP) Pulse Ox O2 Delivery O2 Flow Rate FiO2 07/30/21 09:12 18 Room Air 07/30/21 07:00 98.1 79 122/75 (91) 98 98.1 Labs Labs Laboratory Tests Test 07/29/21 17:59 07/29/21 18:25 07/30/21 00:12 07/30/21 06:55 Urine Collection Type Unknown Urine Color (Auto) Light yellow Urine Turbidity Clear Urine pH (Auto) 5.5 (<5.0-8.0) Urine Specific [place] 1.009 (1.000-1.030) Urine Protein (Auto) Negative mg/dL (Negative) Urine Glucose (Auto)(UA) Negative mg/dL (Negative) Urine Ketones (Auto) Negative mg/dL (Negative) Urine Blood (Auto) Moderate (Negative) Urine Nitrite Negative (Negative) Urine Bilirubin (Auto) Negative (Negative) Urine Urobilinogen (Auto) Normal mg/dL (Normal) Urine Leukocyte Esterase (Auto) Negative (Negative) Urine RBC Occ /HPF (0-2) Urine WBC 1-4 /HPF (0-4) Urine Squamous Epithelial Cells Mod /LPF Urine Bacteria Few /HPF (0-FEW) Urine Test Negative (NEG) Urine Opiates Screen Neg (NEG) Urine Methadone Screen Neg (NEG) Urine Barbiturates Neg (NEG) Urine Phencyclidine Screen Neg (NEG) Urine Amphetamine/Methamphetamine Neg (NEG) Urine Benzodiazepines Screen Neg (NEG) Urine Cocaine Screen Neg (NEG) Urine Cannabinoids Screen Neg (NEG) Urine Ethyl Alcohol Neg (NEG) White Blood Count 13.2 x10^3/uL (4.0-11.0) 10.1 x10^3/uL (4.0-11.0) Red Blood Count 5.14 x10^6/uL (3.50-5.40) 4.72 x10^6/uL (3.50-5.40) Hemoglobin 10.9 g/dL (12.0-15.5) 10.1 g/dL (12.0-15.5) Hematocrit 34.2 % (36.0-47.0) 31.5 % (36.0-47.0) Mean Corpuscular Volume 67 fL (79-100) 67 fL (79-100) Mean Corpuscular Hemoglobin 21 pg (25-35) 21 pg (25-35) Mean Corpuscular Hemoglobin Concent 32 g/dL (31-37) 32 g/dL (31-37) Red Cell Distribution Width 18.6 % (11.5-14.5) 19.1 % (11.5-14.5) Platelet Count 414 x10^3/uL (140-400) 370 x10^3/uL (140-400) Neutrophils (%) (Auto) 77 % (31-73) 79 % (31-73) Lymphocytes (%) (Auto) 14 % (24-48) 13 % (24-48) Monocytes (%) (Auto) 8 % (0-9) 7 % (0-9) Eosinophils (%) (Auto) 1 % (0-3) 2 % (0-3) Basophils (%) (Auto) 1 % (0-3) 1 % (0-3) Neutrophils # (Auto) 10.2 x10^3/uL (1.8-7.7) 8.0 x10^3/uL (1.8-7.7) Lymphocytes # (Auto) 1.8 x10^3/uL (1.0-4.8) 1.3 x10^3/uL (1.0-4.8) Monocytes # (Auto) 1.0 x10^3/uL (0.0-1.1) 0.7 x10^3/uL (0.0-1.1) Eosinophils # (Auto) 0.1 x10^3/uL (0.0-0.7) 0.2 x10^3/uL (0.0-0.7) Basophils # (Auto) 0.1 x10^3/uL (0.0-0.2) 0.1 x10^3/uL (0.0-0.2) Platelet Estimate Increased (ADEQUATE) Hypochromasia Mod Poikilocytosis Slight Anisocytosis Slight Microcytosis Mod Sodium Level 135 mmol/L (136-145) 140 mmol/L (136-145) Potassium Level 3.2 mmol/L (3.5-5.1) 3.5 mmol/L (3.5-5.1) Chloride Level 98 mmol/L (98-107) 103 mmol/L (98-107) Carbon Dioxide Level 30 mmol/L (21-32) 28 mmol/L (21-32) Anion Gap 7 (6-14) 9 (6-14) Blood Urea Nitrogen 10 mg/dL (7-20) 8 mg/dL (7-20) Creatinine 1.0 mg/dL (0.6-1.0) 0.8 mg/dL (0.6-1.0) Estimated GFR (Cockcroft-Gault) 71.6 92.6 BUN/Creatinine Ratio 10 (6-20) 10 (6-20) Glucose Level 96 mg/dL (70-99) 89 mg/dL (70-99) Calcium Level 8.8 mg/dL (8.5-10.1) 8.7 mg/dL (8.5-10.1) Total Bilirubin 0.4 mg/dL (0.2-1.0) 0.4 mg/dL (0.2-1.0) Aspartate Amino Transf (AST/SGOT) 16 U/L (15-37) 11 U/L (15-37) Alanine Aminotransferase (ALT/SGPT) 22 U/L (14-59) 19 U/L (14-59) Alkaline Phosphatase 73 U/L (46-116) 60 U/L (46-116) Total Protein 8.6 g/dL (6.4-8.2) 7.4 g/dL (6.4-8.2) Albumin 3.3 g/dL (3.4-5.0) 2.7 g/dL (3.4-5.0) Albumin/Globulin Ratio 0.6 (1.0-1.7) 0.6 (1.0-1.7) Lipase 61 U/L (73-393) Ethyl Alcohol Level < 10 mg/dL (0-10) SARS-CoV-2 Antigen (Rapid) Negative (NEGATIVE) Laboratory Tests Test 07/29/21 17:59 07/29/21 18:25 07/30/21 00:12 07/30/21 06:55 Urine Collection Type Unknown Urine Color (Auto) Light yellow Urine Turbidity Clear Urine pH (Auto) 5.5 (<5.0-8.0) Urine Specific [place] 1.009 (1.000-1.030) Urine Protein (Auto) Negative mg/dL (Negative) Urine Glucose (Auto)(UA) Negative mg/dL (Negative) Urine Ketones (Auto) Negative mg/dL (Negative) Urine Blood (Auto) Moderate (Negative) Urine Nitrite Negative (Negative) Urine Bilirubin (Auto) Negative (Negative) Urine Urobilinogen (Auto) Normal mg/dL (Normal) Urine Leukocyte Esterase (Auto) Negative (Negative) Urine RBC Occ /HPF (0-2) Urine WBC 1-4 /HPF (0-4) Urine Squamous Epithelial Cells Mod /LPF Urine Bacteria Few /HPF (0-FEW) Urine Test Negative (NEG) Urine Opiates Screen Neg (NEG) Urine Methadone Screen Neg (NEG) Urine Barbiturates Neg (NEG) Urine Phencyclidine Screen Neg (NEG) Urine Amphetamine/Methamphetamine Neg (NEG) Urine Benzodiazepines Screen Neg (NEG) Urine Cocaine Screen Neg (NEG) Urine Cannabinoids Screen Neg (NEG) Urine Ethyl Alcohol Neg (NEG) White Blood Count 13.2 x10^3/uL (4.0-11.0) 10.1 x10^3/uL (4.0-11.0) Red Blood Count 5.14 x10^6/uL (3.50-5.40) 4.72 x10^6/uL (3.50-5.40) Hemoglobin 10.9 g/dL (12.0-15.5) 10.1 g/dL (12.0-15.5) Hematocrit 34.2 % (36.0-47.0) 31.5 % (36.0-47.0) Mean Corpuscular Volume 67 fL (79-100) 67 fL (79-100) Mean Corpuscular Hemoglobin 21 pg (25-35) 21 pg (25-35) Mean Corpuscular Hemoglobin Concent 32 g/dL (31-37) 32 g/dL (31-37) Red Cell Distribution Width 18.6 % (11.5-14.5) 19.1 % (11.5-14.5) Platelet Count 414 x10^3/uL (140-400) 370 x10^3/uL (140-400) Neutrophils (%) (Auto) 77 % (31-73) 79 % (31-73) Lymphocytes (%) (Auto) 14 % (24-48) 13 % (24-48) Monocytes (%) (Auto) 8 % (0-9) 7 % (0-9) Eosinophils (%) (Auto) 1 % (0-3) 2 % (0-3) Basophils (%) (Auto) 1 % (0-3) 1 % (0-3) Neutrophils # (Auto) 10.2 x10^3/uL (1.8-7.7) 8.0 x10^3/uL (1.8-7.7) Lymphocytes # (Auto) 1.8 x10^3/uL (1.0-4.8) 1.3 x10^3/uL (1.0-4.8) Monocytes # (Auto) 1.0 x10^3/uL (0.0-1.1) 0.7 x10^3/uL (0.0-1.1) Eosinophils # (Auto) 0.1 x10^3/uL (0.0-0.7) 0.2 x10^3/uL (0.0-0.7) Basophils # (Auto) 0.1 x10^3/uL (0.0-0.2) 0.1 x10^3/uL (0.0-0.2) Platelet Estimate Increased (ADEQUATE) Hypochromasia Mod Poikilocytosis Slight Anisocytosis Slight Microcytosis Mod Sodium Level 135 mmol/L (136-145) 140 mmol/L (136-145) Potassium Level 3.2 mmol/L (3.5-5.1) 3.5 mmol/L (3.5-5.1) Chloride Level 98 mmol/L (98-107) 103 mmol/L (98-107) Carbon Dioxide Level 30 mmol/L (21-32) 28 mmol/L (21-32) Anion Gap 7 (6-14) 9 (6-14) Blood Urea Nitrogen 10 mg/dL (7-20) 8 mg/dL (7-20) Creatinine 1.0 mg/dL (0.6-1.0) 0.8 mg/dL (0.6-1.0) Estimated GFR (Cockcroft-Gault) 71.6 92.6 BUN/Creatinine Ratio 10 (6-20) 10 (6-20) Glucose Level 96 mg/dL (70-99) 89 mg/dL (70-99) Calcium Level 8.8 mg/dL (8.5-10.1) 8.7 mg/dL (8.5-10.1) Total Bilirubin 0.4 mg/dL (0.2-1.0) 0.4 mg/dL (0.2-1.0) Aspartate Amino Transf (AST/SGOT) 16 U/L (15-37) 11 U/L (15-37) Alanine Aminotransferase (ALT/SGPT) 22 U/L (14-59) 19 U/L (14-59) Alkaline Phosphatase 73 U/L (46-116) 60 U/L (46-116) Total Protein 8.6 g/dL (6.4-8.2) 7.4 g/dL (6.4-8.2) Albumin 3.3 g/dL (3.4-5.0) 2.7 g/dL (3.4-5.0) Albumin/Globulin Ratio 0.6 (1.0-1.7) 0.6 (1.0-1.7) Lipase 61 U/L (73-393) Ethyl Alcohol Level < 10 mg/dL (0-10) SARS-CoV-2 Antigen (Rapid) Negative (NEGATIVE) Assessment/Plan Assessment/Plan cholecystitis plan lap nadine today TERRY SANDRA MD 07/30/21 1124: CONSULT Assessment/Plan Assessment/Plan Patient seen and examined by me currently resting comfortably in bed describes epigastric pain. Ultrasound showing thickened gallbladder with sludge consistent with the cholecystitis. Plan laparoscopic cholecystectomy agree with Mario Alberto assessment and plan NALLELY SHARIF APRN Jul 30, 2021 11:05 TERRY SANDRA MD Jul 30, 2021 11:24
[2021-07-30] MEDS ORDERED: PHENYLEPHRINE in 0.9% NACL PF 1 MG/10 ML SYRINGE. IV ONE (11:54)
--- NOTE | 2021-07-30 12:32 | PDOC4 ---
Operative Note Operative Note Date: July 302021 at 12:30 PM Preoperative diagnosis: Acute cholecystitis Postoperative diagnosis: Same Procedure: Laparoscopic cholecystectomy Surgeon: Shakir Specimen: Gallbladder Dictation: Patient is a 46-year-old female was mated to the hospital right upper quadrant abdominal pain and ultrasound showing gallstones and thickened gallbladder wall consistent with acute cholecystitis. Procedure of laparoscopic cholecystectomy was explained to the patient detail risk benefits were also discussed including bleeding infection injury to intra-abdominal contents possible necessitating further open operations alternatives to this procedure also discussed with the patient who seemed to understand and gave a verbal written consent to have the procedure performed. Patient was taken to the operating room placed in supine position general anesthesia was initiated once patient was sleeping intubated her abdomen was prepped and draped usual sterile fashion using ChloraPrep. Area just below her umbilicus was injected with quarter percent Marcaine with epinephrine incision was made 11 blade scalpel and a varies needle was placed within the abdomen creating pneumoperitoneum once this was complete 11 mm port was placed in a 5 mm camera was placed within the abdomen which was inspected no other abnormalities were noted was noted the gallbladder is quite distended and inflamed. A 5 mm ports placed in the epigastrium a 5 mm port was placed in the right midabdomen a 5 mm ports placed in the right lateral abdomen all under direct visualization. The gallbladder was aspirated of its contents with a large-bore needle was clear consistent with hydrops. The dome of the gallbladder is grasped retracted cephalad the i nfundibulum the gallbladder is grasped retracted laterally and there is quite a bit of inflammatory reaction around the triangle adherent tissues were taken down exposing the cystic duct and cystic artery. Both were doubly clipped and transected the gallbladder was taken off the liver with hook electrocautery placed Endo Catch bag removed the umbilicus right upper quadrant was irrigated and suctioned dry hemostasis deemed be appropriate the pneumoperitoneum was reduced all ports were removed the fascial defect at the umbilicus was closed with a [id number] 0 Vicryl suture and the skin was reapproximated all port sites for subcuticular Monocryl Mastisol Steri-Strips and island dressings were applied. Patient was awakened extubated in the operating room taken to recovery in stable condition all sponge instrument needle counts listed as correct estimated blood loss 30 mL TERRY SANDRA MD Jul 30, 2021 12:32
[2021-07-30] MEDS ORDERED: oxyCODONE/APAP 5/325 1 TAB TABLET PO PRN (12:45)
[2021-07-30] MEDS: KETOROLAC 15 MG/ML VIAL. IVP SCH ×2 (13:00→19:49)
[2021-07-30] MEDS: PIPERACILLIN/TAZOBACTAM 3.375 GM in IV NORMAL SALINE 50ML 50 ML IV SCH ×2 (16:38→19:00)
[2021-07-30] MEDS: HEPARIN for SUB-Q USE 5,000 UNIT/ML VIAL. SQ SCH (16:54)
[2021-07-30] MEDS: oxyCODONE/APAP 5/325 1 TAB TABLET PO PRN (20:15)
[2021-07-31] MEDS: LACTOBACILLUS RHAMNOSUS GG 1 CAPSULE. PO SCH ×2 (00:03→08:17)
[2021-07-31] MEDS: PIPERACILLIN/TAZOBACTAM 3.375 GM in IV NORMAL SALINE 50ML 50 ML IV SCH ×3 (00:06→11:48)
[2021-07-31] MEDS: HEPARIN for SUB-Q USE 5,000 UNIT/ML VIAL. SQ SCH ×2 (00:13→06:55)
[2021-07-31] MEDS: oxyCODONE/APAP 5/325 1 TAB TABLET PO PRN ×2 (01:28→06:57)
[2021-07-31 04:00] VITALS: BP 104/62
[2021-07-31] MEDS: KETOROLAC 15 MG/ML VIAL. IVP SCH (06:47)
[2021-07-31 07:45] VITALS: BP 113/74
--- NOTE | 2021-07-31 09:03 | PDOC ---
SURGICAL PROGRESS NOTE DATE: 07/31/21 TIME: 09:02 Subjective feels well tolerating diet pain managed Vital Signs Vital Signs Date Time Temp Pulse Resp B/P (MAP) Pulse Ox O2 Delivery O2 Flow Rate FiO2 07/31/21 08:00 Room Air 07/31/21 07:45 98.8 72 17 113/74 (87) 95 98.8 07/30/21 13:11 10.0 I&O Intake and Output 07/31/21 07:00 Intake Total 990 ml Output Total 30 ml Balance 960 ml Intake Oral 940 ml IV Total 50 ml Output Estimated Blood Loss 30 ml # Voids 1 General: Alert, Oriented X3, Cooperative Abdomen: Soft, Other (lap sites intact ) Labs Laboratory Tests Test 07/29/21 17:59 07/29/21 18:25 07/30/21 00:12 07/30/21 06:55 Urine Collection Type Unknown Urine Color (Auto) Light yellow Urine Turbidity Clear Urine pH (Auto) 5.5 (<5.0-8.0) Urine Specific [place] 1.009 (1.000-1.030) Urine Protein (Auto) Negative mg/dL (Negative) Urine Glucose (Auto)(UA) Negative mg/dL (Negative) Urine Ketones (Auto) Negative mg/dL (Negative) Urine Blood (Auto) Moderate (Negative) Urine Nitrite Negative (Negative) Urine Bilirubin (Auto) Negative (Negative) Urine Urobilinogen (Auto) Normal mg/dL (Normal) Urine Leukocyte Esterase (Auto) Negative (Negative) Urine RBC Occ /HPF (0-2) Urine WBC 1-4 /HPF (0-4) Urine Squamous Epithelial Cells Mod /LPF Urine Bacteria Few /HPF (0-FEW) Urine Test Negative (NEG) Urine Opiates Screen Neg (NEG) Urine Methadone Screen Neg (NEG) Urine Barbiturates Neg (NEG) Urine Phencyclidine Screen Neg (NEG) Urine Amphetamine/Methamphetamine Neg (NEG) Urine Benzodiazepines Screen Neg (NEG) Urine Cocaine Screen Neg (NEG) Urine Cannabinoids Screen Neg (NEG) Urine Ethyl Alcohol Neg (NEG) White Blood Count 13.2 x10^3/uL (4.0-11.0) 10.1 x10^3/uL (4.0-11.0) Red Blood Count 5.14 x10^6/uL (3.50-5.40) 4.72 x10^6/uL (3.50-5.40) Hemoglobin 10.9 g/dL (12.0-15.5) 10.1 g/dL (12.0-15.5) Hematocrit 34.2 % (36.0-47.0) 31.5 % (36.0-47.0) Mean Corpuscular Volume 67 fL (79-100) 67 fL (79-100) Mean Corpuscular Hemoglobin 21 pg (25-35) 21 pg (25-35) Mean Corpuscular Hemoglobin Concent 32 g/dL (31-37) 32 g/dL (31-37) Red Cell Distribution Width 18.6 % (11.5-14.5) 19.1 % (11.5-14.5) Platelet Count 414 x10^3/uL (140-400) 370 x10^3/uL (140-400) Neutrophils (%) (Auto) 77 % (31-73) 79 % (31-73) Lymphocytes (%) (Auto) 14 % (24-48) 13 % (24-48) Monocytes (%) (Auto) 8 % (0-9) 7 % (0-9) Eosinophils (%) (Auto) 1 % (0-3) 2 % (0-3) Basophils (%) (Auto) 1 % (0-3) 1 % (0-3) Neutrophils # (Auto) 10.2 x10^3/uL (1.8-7.7) 8.0 x10^3/uL (1.8-7.7) Lymphocytes # (Auto) 1.8 x10^3/uL (1.0-4.8) 1.3 x10^3/uL (1.0-4.8) Monocytes # (Auto) 1.0 x10^3/uL (0.0-1.1) 0.7 x10^3/uL (0.0-1.1) Eosinophils # (Auto) 0.1 x10^3/uL (0.0-0.7) 0.2 x10^3/uL (0.0-0.7) Basophils # (Auto) 0.1 x10^3/uL (0.0-0.2) 0.1 x10^3/uL (0.0-0.2) Platelet Estimate Increased (ADEQUATE) Hypochromasia Mod Poikilocytosis Slight Anisocytosis Slight Microcytosis Mod Sodium Level 135 mmol/L (136-145) 140 mmol/L (136-145) Potassium Level 3.2 mmol/L (3.5-5.1) 3.5 mmol/L (3.5-5.1) Chloride Level 98 mmol/L (98-107) 103 mmol/L (98-107) Carbon Dioxide Level 30 mmol/L (21-32) 28 mmol/L (21-32) Anion Gap 7 (6-14) 9 (6-14) Blood Urea Nitrogen 10 mg/dL (7-20) 8 mg/dL (7-20) Creatinine 1.0 mg/dL (0.6-1.0) 0.8 mg/dL (0.6-1.0) Estimated GFR (Cockcroft-Gault) 71.6 92.6 BUN/Creatinine Ratio 10 (6-20) 10 (6-20) Glucose Level 96 mg/dL (70-99) 89 mg/dL (70-99) Calcium Level 8.8 mg/dL (8.5-10.1) 8.7 mg/dL (8.5-10.1) Total Bilirubin 0.4 mg/dL (0.2-1.0) 0.4 mg/dL (0.2-1.0) Aspartate Amino Transf (AST/SGOT) 16 U/L (15-37) 11 U/L (15-37) Alanine Aminotransferase (ALT/SGPT) 22 U/L (14-59) 19 U/L (14-59) Alkaline Phosphatase 73 U/L (46-116) 60 U/L (46-116) Total Protein 8.6 g/dL (6.4-8.2) 7.4 g/dL (6.4-8.2) Albumin 3.3 g/dL (3.4-5.0) 2.7 g/dL (3.4-5.0) Albumin/Globulin Ratio 0.6 (1.0-1.7) 0.6 (1.0-1.7) Lipase 61 U/L (73-393) Ethyl Alcohol Level < 10 mg/dL (0-10) Coronavirus (COVID-19)(PCR) Not detected (NOT DETECTD) SARS-CoV-2 Antigen (Rapid) Negative (NEGATIVE) Assessment/Plan s/p nadine ok to ca home FU 2 weeks Justicifation of Admission Dx: Justifications for Admission: Justification of Admission Dx: N/A NALLELY SHARIF APRN Jul 31, 2021 09:03
[2021-07-31] MEDS ORDERED: OXYC1TAB15 PO (09:04)
[2021-07-31 11:00] VITALS: BP 120/73
--- NOTE | 2021-07-31 12:13 | PDOC ---
[employer] PROGRESS NOTE Date of Service DOS: DATE: 07/31/21 TIME: 12:11 Chief Complaint Chief Complaint Acute cholecystitis Iron deficiency anemia History of Present Illness History of Present Illness 07/31: Patient seen and evaluated bedside. She is tolerating diet, without nausea. Passing flatus. Ready for discharge home today. She will follow-up with general surgery in 2 weeks. Greater than 30 minutes spent managing discharge this patient. Vitals/I&O Vitals/I&O: Vital Signs Date Time Temp Pulse Resp B/P (MAP) Pulse Ox O2 Delivery O2 Flow Rate FiO2 07/31/21 11:00 98.1 67 18 120/73 (89) 97 Room Air 98.1 07/30/21 13:11 10.0 I & O 07/30/21 07/30/21 07/31/21 15:00 23:00 07:00 Intake Total 0 ml 580 ml 410 ml Output Total 30 ml Balance -30 ml 580 ml 410 ml Physical Exam General: Alert, Oriented X3, Cooperative Heart: Regular rate, Normal S1, Normal S2 Lungs: Clear Abdomen: Soft, Other (lap sites intact ) Extremities: No clubbing, No cyanosis Skin: No rashes, No breakdown Comment Review of Relevant I have reviewed the following items lyndsey (where applicable) has been applied. Medications: Current Medications Medications (Trade) Dose Ordered Sig/Aye Route PRN Reason Start Time Stop Time Status Last Admin Dose Admin Heparin Sodium (Porcine) (Heparin Sodium) 5,000 unit Q8HRS SQ 07/30/21 14:00 07/31/21 06:55 Oxycodone/ Acetaminophen (Percocet 5/325) 2 tab PRN Q4HRS PRN PO MODERATE PAIN, SEVERE PAIN 07/30/21 12:45 07/31/21 06:57 Ketorolac Tromethamine (Toradol 15mg Vial) 15 mg Q6HRS W/A IVP 07/30/21 13:00 07/31/21 12:59 07/31/21 06:47 Piperacillin Sod/ Tazobactam Sod 3.375 gm/Sodium Chloride 50 ml @ 100 mls/hr Q6HRS IV 07/30/21 14:00 07/31/21 11:48 Lactobacillus Rhamnosus (Culturelle) 1 cap BID PO 07/30/21 21:00 07/31/21 08:17 Justifications for Admission Other Justification JELANI NOWAK MD Jul 31, 2021 12:13
--- NOTE | 2021-07-31 12:14 | PDOC3 ---
Discharge Summary Visit Information Date of Admission: Jul 30, 2021 Date of Discharge: Jul 31, 2021 Brief Hospital Course Allergies Allergies Coded Allergies Type Severity Reaction Last Updated Verified No Known Drug Allergies 01/06/20 No Vital Signs Vital Signs Date Time Temp Pulse Resp B/P (MAP) Pulse Ox O2 Delivery O2 Flow Rate FiO2 07/31/21 11:00 98.1 67 18 120/73 (89) 97 Room Air 98.1 07/30/21 13:11 10.0 Lab Results Laboratory Tests Test 07/29/21 17:59 07/29/21 18:25 07/30/21 00:12 07/30/21 06:55 Urine Collection Type Unknown Urine Color (Auto) Light yellow Urine Turbidity Clear Urine pH (Auto) 5.5 (<5.0-8.0) Urine Specific [place] 1.009 (1.000-1.030) Urine Protein (Auto) Negative mg/dL (Negative) Urine Glucose (Auto)(UA) Negative mg/dL (Negative) Urine Ketones (Auto) Negative mg/dL (Negative) Urine Blood (Auto) Moderate (Negative) Urine Nitrite Negative (Negative) Urine Bilirubin (Auto) Negative (Negative) Urine Urobilinogen (Auto) Normal mg/dL (Normal) Urine Leukocyte Esterase (Auto) Negative (Negative) Urine RBC Occ /HPF (0-2) Urine WBC 1-4 /HPF (0-4) Urine Squamous Epithelial Cells Mod /LPF Urine Bacteria Few /HPF (0-FEW) Urine Test Negative (NEG) Urine Opiates Screen Neg (NEG) Urine Methadone Screen Neg (NEG) Urine Barbiturates Neg (NEG) Urine Phencyclidine Screen Neg (NEG) Urine Amphetamine/Methamphetamine Neg (NEG) Urine Benzodiazepines Screen Neg (NEG) Urine Cocaine Screen Neg (NEG) Urine Cannabinoids Screen Neg (NEG) Urine Ethyl Alcohol Neg (NEG) White Blood Count 13.2 x10^3/uL (4.0-11.0) 10.1 x10^3/uL (4.0-11.0) Red Blood Count 5.14 x10^6/uL (3.50-5.40) 4.72 x10^6/uL (3.50-5.40) Hemoglobin 10.9 g/dL (12.0-15.5) 10.1 g/dL (12.0-15.5) Hematocrit 34.2 % (36.0-47.0) 31.5 % (36.0-47.0) Mean Corpuscular Volume 67 fL (79-100) 67 fL (79-100) Mean Corpuscular Hemoglobin 21 pg (25-35) 21 pg (25-35) Mean Corpuscular Hemoglobin Concent 32 g/dL (31-37) 32 g/dL (31-37) Red Cell Distribution Width 18.6 % (11.5-14.5) 19.1 % (11.5-14.5) Platelet Count 414 x10^3/uL (140-400) 370 x10^3/uL (140-400) Neutrophils (%) (Auto) 77 % (31-73) 79 % (31-73) Lymphocytes (%) (Auto) 14 % (24-48) 13 % (24-48) Monocytes (%) (Auto) 8 % (0-9) 7 % (0-9) Eosinophils (%) (Auto) 1 % (0-3) 2 % (0-3) Basophils (%) (Auto) 1 % (0-3) 1 % (0-3) Neutrophils # (Auto) 10.2 x10^3/uL (1.8-7.7) 8.0 x10^3/uL (1.8-7.7) Lymphocytes # (Auto) 1.8 x10^3/uL (1.0-4.8) 1.3 x10^3/uL (1.0-4.8) Monocytes # (Auto) 1.0 x10^3/uL (0.0-1.1) 0.7 x10^3/uL (0.0-1.1) Eosinophils # (Auto) 0.1 x10^3/uL (0.0-0.7) 0.2 x10^3/uL (0.0-0.7) Basophils # (Auto) 0.1 x10^3/uL (0.0-0.2) 0.1 x10^3/uL (0.0-0.2) Platelet Estimate Increased (ADEQUATE) Hypochromasia Mod Poikilocytosis Slight Anisocytosis Slight Microcytosis Mod Sodium Level 135 mmol/L (136-145) 140 mmol/L (136-145) Potassium Level 3.2 mmol/L (3.5-5.1) 3.5 mmol/L (3.5-5.1) Chloride Level 98 mmol/L (98-107) 103 mmol/L (98-107) Carbon Dioxide Level 30 mmol/L (21-32) 28 mmol/L (21-32) Anion Gap 7 (6-14) 9 (6-14) Blood Urea Nitrogen 10 mg/dL (7-20) 8 mg/dL (7-20) Creatinine 1.0 mg/dL (0.6-1.0) 0.8 mg/dL (0.6-1.0) Estimated GFR (Cockcroft-Gault) 71.6 92.6 BUN/Creatinine Ratio 10 (6-20) 10 (6-20) Glucose Level 96 mg/dL (70-99) 89 mg/dL (70-99) Calcium Level 8.8 mg/dL (8.5-10.1) 8.7 mg/dL (8.5-10.1) Total Bilirubin 0.4 mg/dL (0.2-1.0) 0.4 mg/dL (0.2-1.0) Aspartate Amino Transf (AST/SGOT) 16 U/L (15-37) 11 U/L (15-37) Alanine Aminotransferase (ALT/SGPT) 22 U/L (14-59) 19 U/L (14-59) Alkaline Phosphatase 73 U/L (46-116) 60 U/L (46-116) Total Protein 8.6 g/dL (6.4-8.2) 7.4 g/dL (6.4-8.2) Albumin 3.3 g/dL (3.4-5.0) 2.7 g/dL (3.4-5.0) Albumin/Globulin Ratio 0.6 (1.0-1.7) 0.6 (1.0-1.7) Lipase 61 U/L (73-393) Ethyl Alcohol Level < 10 mg/dL (0-10) Coronavirus (COVID-19)(PCR) Not detected (NOT DETECTD) SARS-CoV-2 Antigen (Rapid) Negative (NEGATIVE) Brief Hospital Course Ms. Akins is a 46 old for who presented with acute cholecystitis. Consultation with general surgery. She had laparoscopic cholecystectomy and was stable to discharge the next day. She will follow-up with general surgery in 2 weeks. Discharge Information Condition at Discharge: Improved Disposition/Orders: D/C to Home Scheduled PRN Hydrocodone/Apap 5-325 ([place] 5-325 Tablet) 1 Each Tablet, 1-2 EACH PO PRN Q6HRS PRN for PAIN, #8 as needed for pain Prescribed by: VALERIE JOE on 01/06/202052 Oxycodone/Apap 5-325 (Percocet 5-325 Mg Tablet ) 1 Each Tablet, 1 TAB PO PRN Q4HRS PRN for MILD PAIN 1-3, #20 Ref 0 Prescribed by: Stefany Bello on 07/31/21 0904 Miscellaneous Medications Ibuprofen (Ibuprofen) 200 Mg Tablet, 200 MG PO, (Reported) Entered as Reported by: JUDITH HENRIQUEZ on 04/08/13 1153 Justicifation of Admission Dx: Justifications for Admission: Justification of Admission Dx: N/A JELANI NOWAK MD Jul 31, 2021 12:14
--- NOTE | 2021-07-31 13:00 | NUR ---
Discharge instructions given and signed, IV line removed. 1330h- Discharged safely, ambulatory, stable accompanied by son.
--- NOTE | 2021-08-03 12:13 | PATHOLOGY ---
[facility] Accession Number: [id number] . 01 Material submitted: . gallbladder - GALLBLADDER . 01 Clinical history: . LAPAROSCOPIC CHOLECYSTECTOMY . 02 Diagnosis: Gallbladder, excision: - Acute necrotizing cholecystitis. - Lithiasis, extensive. - Negative for malignancy. (MLK/db; 08/02/2021) LBQ 08/02/2021 1853 Local . 02 Electronically signed: . Gauri Pearl MD, Pathologist NPI- [id number] . 01 Gross description: . Fixative: Formalin Labeled: Gall bladder Specimen received: Intact cholecystectomy Dimensions: 12.5 x 5.3 x 0.5 cm Serosa: Ho-pink with hemorrhagic stippling and focal fibrotic areas Lymph node: None identified Mucosa: Red-brown and hemorrhagic with smooth eroded areas covering 75% of the mucosa Average wall thickness: Ranges from 0.3-0.5 cm Calculi: Yes, numerous green-giron of multifaceted calculi are compacted within the gallbladder, including the gallbladder neck (possibly obstructing the cystic duct). The calculi measure in aggregate 8.5 x 6.5 x 3.0 cm and range from 0.4-3.6 cm. The surrounding bile is thick and gritty. Abnormalities: Previously described A1- Nutrition Associate body, fundus, and the cystic duct margin. (SKC; 08/01/2021) SYC/SYC 08/01/2021 1057 Local . 02 Pathologist provided ICD-10: K80.00 . 02 CPT . 590277 Specimen Comment: A courtesy copy of this report has been sent to [phone] Specimen Comment: [id number] Specimen Comment: Report sent to / DR SANDRA Performed at: 01 [facility] [address] [id number] MD Yadiel Harris MD Phone: [phone] Performed at: 02 [id number] [address] [id number] MD Bhavesh Mcdermott MD Phone: [phone]
== END 2021-07-31 13:30 | disposition home or self-care (01) | DRG 419 ==
LOC: ER 17:33 → 2 NORTH 22:35
PROVIDERS: ADMIT Family Medicine; ATTEND Family Medicine
PROC: 0FT44ZZ Resection of Gallbladder, Percutaneous Endoscopic Approach (ICD-10-PCS; principal; 2021-07-29)
DX: K80.00 Calculus of gallbladder with acute cholecystitis without obstruction (principal); D50.9 Iron deficiency anemia, unspecified; K59.00 Constipation, unspecified; F32.A Depression, unspecified; F41.9 Anxiety disorder, unspecified; Z20.822 Contact with and (suspected) exposure to COVID-19
CPT/HCPCS: 36415; 74177; 76705; 80053; 80307; 81001; 81025; 83690; 85025; 87426; 88304; 96361; 96365; 96368; 96375; A4364; A4657; A4930; A6219; G0480; J1100; J1644; J1885; J2250; J2270; J2370; J2405; J2543; J2704; J2710; J3010; J3490; J7030; J7120; Q9967; U0003; 99285-25; G0378